=== PATIENT | female | born 1995 | race Two or more races ===

== ENCOUNTER 2016-12-28 00:14 | Emergency (ER) | payer BC ==
[~2016-12-28] VITALS: Ht 160 cm; Wt 77.1 kg
[2016-12-28 01:08] LABS: Basophils # (auto) 0.1 uL; Basophils % (auto) 0.6 % (0.0-2.0); DEFINITIVE VIEW TRANSMISSION; Eosinophils # (auto) 1.2 uL; Eosinophils % (auto) 10.3 % (0.0-7.0); Hematocrit 39.4 % (36.0-46.0); Hemoglobin 13.1 g/dL (12.2-16.2); Lymphocytes # (auto) 3.6 uL; Lymphocytes % (auto) 31.7 % (10.0-50.0); Mean Corpuscular Hemoglobin 27.2 pg (28.0-32.0); Mean Corpuscular Hgb Conc. 33.2 g/dL (32.0-36.0); Mean Platelet Volume 10.8 fL (7.4-10.4); Monocytes # (auto) 0.9 uL; Monocytes % (auto) 7.5 % (0.0-12.0); Neutrophils # (auto) 5.6 uL; Neutrophils % (auto) 49.9 % (37.0-80.0); Platelet Count (auto) 185 10^3/uL (140-450); Red Cell Distribution Width 12.5 % (11.6-16.0); White Blood Cell 11.4 10^3/uL (4.4-10.8)
[2016-12-28 01:28] LABS: Albumin 3.4 g/dL (3.4-5.0); BUN/Creatinine Ratio 33.3; Calcium 8.4 mg/dL (8.5-10.1); Magnesium 1.9 mg/dL (1.6-2.6); Potassium 3.6 mmol/L (3.5-5.1)
[2016-12-28 01:31] LABS: Bilirubin, Total 0.1 mg/dL (0.2-1.0); Total Protein 7.6 g/dL (6.4-8.2)
[2016-12-28 03:49] VITALS: BP 141/69
[2016-12-28] MEDS ORDERED: LIDOCAINE VISCOUS 2% 15ML UD PO ONE (04:15)
[2016-12-28] MEDS ORDERED: ALUM & MAG HYDROX-SIMETH LIQ(MAALOX) 30 ML PO ONE (04:15)
[2016-12-28] MEDS ORDERED: DONNATAL 5ml ORAL Elix (BELLADONNA ALK-PHENOBARB) PO ONE (04:15)
== END 2016-12-28 04:15 | disposition left against medical advice (07) ==
LOC: ER 00:18
DX: K21.9 Gastro-esophageal reflux disease without esophagitis (principal)
CPT/HCPCS: 36415; 80053; 83690; 83735; 84702; 85025

== ENCOUNTER → 2018-05-06 | Outpatient (CLI) | payer BC, MEDICAID ==
[2018-05-06 07:50] LABS: Basophils # (auto) 0.1 uL; Basophils % (auto) 0.5 % (0.0-2.0); Eosinophils # (auto) 0.1 uL; Hematocrit 36.1 % (36.0-46.0); Hemoglobin 11.6 g/dL (12.2-16.2); Lymphocytes # (auto) 2.9 uL; Lymphocytes % (auto) 24.9 % (10.0-50.0); Mean Corpuscular Hemoglobin 27.1 pg (28.0-32.0); Mean Corpuscular Hgb Conc. 32.2 g/dL (32.0-36.0); Mean Corpuscular Volume 84.2 fL (80.0-100.0); Monocytes # (auto) 0.7 uL; Monocytes % (auto) 6.4 % (0.0-12.0); Neutrophils # (auto) 7.8 uL; Neutrophils % (auto) 67.2 % (37.0-80.0); Nucleated Red Blood Cells % 0.2 %; Platelet Count (auto) 144 10^3/uL (140-450); Red Blood Cells 4.28 10^6/uL (4.0-5.20); Red Cell Distribution Width 13.3 % (11.8-14.3); White Blood Cell 11.6 10^3/uL (4.4-10.8)
== END | disposition home or self-care (01) ==
LOC: LAB 07:29
PROVIDERS: ATTEND Obstetrics & Gynecology
DX: O99.810 Abnormal glucose complicating pregnancy (principal); O23.43 Unspecified infection of urinary tract in pregnancy, third trimester; Z3A.28 28 weeks gestation of pregnancy
CPT/HCPCS: 36415; 82951; 83036; 85025; 87086

== ENCOUNTER 2018-05-29 14:08 | Observation (INO) | payer BC, MEDICAID | END 2018-05-29 15:55 | disposition home or self-care (01) | DRG 833 | LOC: LDRP 14:08 | PROVIDERS: ADMIT Obstetrics & Gynecology; ATTEND Obstetrics & Gynecology | DX: O28.1 Abnormal biochemical finding on antenatal screening of mother (principal); R77.2 Abnormality of alphafetoprotein; Z3A.32 32 weeks gestation of pregnancy | CPT/HCPCS: 59025; 76818; 81002; G0378 ==

== ENCOUNTER → 2018-07-01 | Outpatient (CLI) | payer BC, MEDICAID ==
[2018-07-01 15:20] LABS: Basophils # (auto) 0 uL; Basophils % (auto) 0.2 % (0.0-2.0); Eosinophils # (auto) 0 uL; Eosinophils % (auto) 0.5 % (0.0-7.0); Hematocrit 33.4 % (36.0-46.0); Hemoglobin 11.3 g/dL (12.2-16.2); Mean Corpuscular Hemoglobin 27.7 pg (28.0-32.0); Mean Corpuscular Hgb Conc. 33.9 g/dL (32.0-36.0); Mean Corpuscular Volume 81.7 fL (80.0-100.0); Monocytes # (auto) 0.4 uL; Monocytes % (auto) 4.3 % (0.0-12.0); Neutrophils # (auto) 7.5 uL; Nucleated Red Blood Cells % 0.1 %; Platelet Count (auto) 128 10^3/uL (140-450); Red Blood Cells 4.09 10^6/uL (4.0-5.20); Red Cell Distribution Width 14.1 % (11.8-14.3)
[2018-07-02 05:10] LABS: RPR Non Reactive (Non Reactive)
== END | disposition home or self-care (01) ==
LOC: LAB 14:38
PROVIDERS: ATTEND Obstetrics & Gynecology
DX: Z34.83 Encounter for supervision of other normal pregnancy, third trimester (principal); Z3A.36 36 weeks gestation of pregnancy
CPT/HCPCS: 36415; 85025; 86592

== ENCOUNTER 2018-07-16 07:50 | Inpatient (IN) | payer BC, MEDICAID ==
[~2018-07-16] VITALS: Ht 160 cm; Wt 107.5 kg
[2018-07-16] VITALS (13 sets, daily range): BP systolic 107–144; BP diastolic 58–89
[2018-07-16 08:55] LABS: Urine Blood Negative /uL (Negative)
[2018-07-16 08:56] LABS: Urine Bacteria FEW /hpf (None Seen); Urine Mucus FEW (None Seen); Urine WBC 3 /hpf (0 - 5)
[2018-07-16 09:01] LABS: Basophils # (auto) 0.1 uL; Basophils % (auto) 0.9 % (0.0-2.0); Eosinophils # (auto) 0.1 uL; Eosinophils % (auto) 0.9 % (0.0-7.0); Hematocrit 36.1 % (36.0-46.0); Hemoglobin 11.8 g/dL (12.2-16.2); Lymphocytes % (auto) 20.7 % (10.0-50.0); Mean Corpuscular Hemoglobin 27.1 pg (28.0-32.0); Mean Corpuscular Hgb Conc. 32.6 g/dL (32.0-36.0); Monocytes # (auto) 0.5 uL; Neutrophils # (auto) 7.1 uL; Neutrophils % (auto) 72.5 % (37.0-80.0); Nucleated Red Blood Cells % 0.1 %; Platelet Count (auto) 118 10^3/uL (140-450); Red Blood Cells 4.35 10^6/uL (4.0-5.20); Red Cell Distribution Width 14.3 % (11.8-14.3); White Blood Cell 9.8 10^3/uL (4.4-10.8)
[2018-07-16 09:05] LABS: INR 0.87 (0.9-1.15); Partial Thromboplastin Time 24.5 sec (23.78-33.04); Prothrombin Time 9.4 sec (9.27-12.13)
[2018-07-16 09:10] LABS: Albumin 2.6 g/dL (3.4-5.0); Calcium 8.3 mg/dL (8.5-10.1); Potassium 3.9 mmol/L (3.5-5.1)
[2018-07-16 09:12] LABS: Bilirubin, Total 0.2 mg/dL (0.2-1.0); Total Protein 6.7 g/dL (6.4-8.2)
[2018-07-16] MEDS ORDERED: SUCCINYLCHOLINE CHLORIDE 20 MG/ML 10ML VIAL IV ONE (11:54)
[2018-07-16] MEDS ORDERED: OXYTOCIN 10 UNIT/ML 10ML VIAL ONE (11:58)
[2018-07-16] MEDS ORDERED: fentaNYL CITRATE 100 MCG/2 ML VL ONE (11:58)
[2018-07-16] MEDS ORDERED: MORPHINE SULF(PF) 0.5MG/ML 10ML VIAL ONE (11:58)
[2018-07-16] MEDS: LACT. RINGERS/OXYTOCIN 20UNITS 1,000 ML IV SCH ×2 (12:02→18:42)
[2018-07-16] MEDS ORDERED: ceFAZolin 1GM/50ML 50 ML IV SCH (12:15)
[2018-07-16] MEDS ORDERED: ONDANSETRON HCL 4 MG/2 ML VIAL IV PRN ×2 (12:15→13:30)
[2018-07-16] MEDS ORDERED: MORPHINE SULFATE 4 MG/ML SYR/VIAL IV PRN (12:15)
[2018-07-16] MEDS ORDERED: CLINDAMYCIN 900MG IV 50 ML IV ONE (12:33)
[2018-07-16] MEDS ORDERED: NALOXONE HCL 0.4 MG/ML VIAL IV PRN (13:30)
[2018-07-16] MEDS ORDERED: diphenhdrAMINE HCL 50 MG/1 ML VL IV PRN (13:30)
[2018-07-16] MEDS ORDERED: CLINDAMYCIN 900MG IV 50 ML IV SCH (14:00)
[2018-07-16] MEDS: KETOROLAC TROMETH 30 MG/ML 1ML VIAL IV PRN (15:18)
[2018-07-16] MEDS: LACTATED RINGER'S 1,000 ML IV SCH ×2 (16:03→18:58)
[2018-07-16 21:13] LABS: Basophils # (auto) 0 uL; Basophils % (auto) 0.1 % (0.0-2.0); Eosinophils # (auto) 0 uL; Eosinophils % (auto) 0.2 % (0.0-7.0); Hematocrit 33.1 % (36.0-46.0); Lymphocytes # (auto) 1.4 uL; Lymphocytes % (auto) 10.3 % (10.0-50.0); Mean Corpuscular Hemoglobin 27.2 pg (28.0-32.0); Mean Corpuscular Hgb Conc. 33.2 g/dL (32.0-36.0); Mean Corpuscular Volume 82.1 fL (80.0-100.0); Monocytes # (auto) 0.6 uL; Monocytes % (auto) 4.7 % (0.0-12.0); Neutrophils # (auto) 11.1 uL; Neutrophils % (auto) 84.7 % (37.0-80.0); Platelet Count (auto) 109 10^3/uL (140-450); Red Blood Cells 4.03 10^6/uL (4.0-5.20); Red Cell Distribution Width 14.5 % (11.8-14.3); White Blood Cell 13.1 10^3/uL (4.4-10.8)
[2018-07-16] MEDS: CLINDAMYCIN 900MG IV 50 ML IV SCH (21:28)
[2018-07-17] VITALS (11 sets, daily range): BP systolic 99–147; BP diastolic 46–73
[2018-07-17] MEDS: LACTATED RINGER'S 1,000 ML IV SCH ×2 (02:58→08:03)
[2018-07-17] MEDS: KETOROLAC TROMETH 30 MG/ML 1ML VIAL IV PRN (02:59)
[2018-07-17] MEDS: CLINDAMYCIN 900MG IV 50 ML IV SCH ×2 (04:58→15:06)
[2018-07-17 05:06] LABS: RPR Non Reactive (Non Reactive)
[2018-07-17] MEDS ORDERED: PHISODERM TOP SOLN 240ML BTL TOP ONE (05:10)
[2018-07-17 06:45] LABS: Basophils # (auto) 0.1 uL; Basophils % (auto) 0.5 % (0.0-2.0); Eosinophils # (auto) 0.1 uL; Eosinophils % (auto) 0.9 % (0.0-7.0); Hematocrit 32.5 % (36.0-46.0); Hemoglobin 10.9 g/dL (12.2-16.2); Lymphocytes % (auto) 18.9 % (10.0-50.0); Mean Corpuscular Hemoglobin 27.7 pg (28.0-32.0); Mean Corpuscular Hgb Conc. 33.5 g/dL (32.0-36.0); Mean Corpuscular Volume 82.8 fL (80.0-100.0); Monocytes # (auto) 0.6 uL; Monocytes % (auto) 5.4 % (0.0-12.0); Neutrophils % (auto) 74.3 % (37.0-80.0); Nucleated Red Blood Cells % 0.1 %; Platelet Count (auto) 114 10^3/uL (140-450); Red Blood Cells 3.92 10^6/uL (4.0-5.20); Red Cell Distribution Width 14.4 % (11.8-14.3); White Blood Cell 10.7 10^3/uL (4.4-10.8)
[2018-07-17] MEDS ORDERED: BISACODYL 10 MG RECT SUPP PR PRN (08:15)
[2018-07-17] MEDS ORDERED: LACTATED RINGER'S 1,000 ML IV SCH (08:15)
[2018-07-17] MEDS: DOCUSATE CALCIUM 240 MG CAP PO SCH (08:49)
[2018-07-17] MEDS: HYDROcodone-ACET 5/325MG TAB PO PRN ×4 (08:49→23:08)
[2018-07-17] MEDS: DOCUSATE SOD 100 MG CAP PO SCH ×2 (08:49→21:54)
[2018-07-17] MEDS: LACT. RINGERS/OXYTOCIN 20UNITS 1,000 ML IV SCH (08:51)
[2018-07-17] MEDS: IBUPROFEN 800 MG TAB PO PRN ×2 (11:57→20:20)
[2018-07-17] MEDS: SIMETHICONE 80 MG CHEWABLE TABLET PO SCH ×3 (11:57→21:54)
[2018-07-18] MEDS: HYDROcodone-ACET 5/325MG TAB PO PRN ×4 (03:10→21:36)
[2018-07-18 03:14] VITALS: BP 99/45
[2018-07-18] MEDS: IBUPROFEN 800 MG TAB PO PRN ×3 (05:39→23:45)
[2018-07-18] MEDS: SIMETHICONE 80 MG CHEWABLE TABLET PO SCH ×4 (05:39→21:36)
[2018-07-18 06:30] VITALS: BP 106/41
[2018-07-18] MEDS: DOCUSATE CALCIUM 240 MG CAP PO SCH (09:42)
[2018-07-18] MEDS: DOCUSATE SOD 100 MG CAP PO SCH ×2 (09:43→21:36)
[2018-07-18 11:08] VITALS: BP 117/69
[2018-07-18 15:00] VITALS: BP 115/63
[2018-07-18 18:55] VITALS: BP 109/63
[2018-07-18 23:00] VITALS: BP 102/32
[2018-07-19 03:00] VITALS: BP 113/71
[2018-07-19] MEDS ORDERED: MEASLES, MUMPS & RUBELLA VAC(MMRII) 0.5ML SC ONE (06:00)
[2018-07-19] MEDS: SIMETHICONE 80 MG CHEWABLE TABLET PO SCH (06:18)
[2018-07-19] MEDS: HYDROcodone-ACET 5/325MG TAB PO PRN (06:33)
[2018-07-19 06:45] VITALS: BP 103/62
[2018-07-19] MEDS: DOCUSATE SOD 100 MG CAP PO SCH (09:52)
[2018-07-19] MEDS: DOCUSATE CALCIUM 240 MG CAP PO SCH (09:52)
== END 2018-07-19 10:50 | disposition home or self-care (01) | DRG 788 ==
LOC: LDRP 07:50
PROVIDERS: ADMIT Specialist; ATTEND Specialist
PROC: 10D00Z1 Extraction of Products of Conception, Low, Open Approach (ICD-10-PCS; principal; 2018-07-16 12:05)
DX: O34.211 Maternal care for low transverse scar from previous cesarean delivery (principal); Z37.0 Single live birth; Z3A.39 39 weeks gestation of pregnancy
CPT/HCPCS: 36415; 51702; 59025; 80053; 81001; 81002; 85025; 85610; 85730; 86592; 86850; 86900; 86901; 90471; 96361; 96366; G0378; J0330; J1885; J2405; J2590; J3490

== ENCOUNTER → 2018-12-19 | Emergency (ER) | payer BC, MEDICAID | END | disposition left against medical advice (07) | LOC: ER 21:11 | DX: M54.9 Dorsalgia, unspecified (principal); Z53.21 Procedure and treatment not carried out due to patient leaving prior to being seen by health care provider ==

== ENCOUNTER 2018-12-20 22:07 | Emergency (ER) | payer BC, MEDICAID ==
[~2018-12-20] VITALS: Ht 162.6 cm; Wt 97.5 kg
[2018-12-20 23:28] LABS: Urine Bacteria FEW /hpf (None Seen); Urine Blood TRACE /uL (Negative); Urine Specific Gravity 1.026 (1.001-1.035); Urine WBC 1 /hpf (0 - 5)
[2018-12-21 00:46] VITALS: BP 139/79
[2018-12-21] MEDS ORDERED: methylPREDNISolone SOD SUCC 125 MG/2 ML VL IM ONE (01:00)
[2018-12-21] MEDS ORDERED: KETOROLAC TROMETH 60MG/2ML VIAL IM ONE (01:00)
[2018-12-21] MEDS ORDERED: methylPREDNISolone SOD SUCC 125 MG/2 ML VL ONE (01:05)
== END 2018-12-21 01:59 | disposition home or self-care (01) ==
LOC: ER 22:08
DX: S42.292A Other displaced fracture of upper end of left humerus, initial encounter for closed fracture (principal); S13.9XXA Sprain of joints and ligaments of unspecified parts of neck, initial encounter; S23.9XXA Sprain of unspecified parts of thorax, initial encounter; Y08.89XA Assault by other specified means, initial encounter; Y93.89 Activity, other specified; Y99.8 Other external cause status; Y92.89 Other specified places as the place of occurrence of the external cause
CPT/HCPCS: 72125; 72128; 73030; 81001; 81025; 96372; 99284; J1885; J2930; 29105

== ENCOUNTER 2021-05-31 13:01 | Emergency (ER) | payer BC, MEDICAID, OTHER ==
[~2021-05-31] VITALS: Ht 160 cm; Wt 101.2 kg
[2021-05-31 14:15] VITALS: BP 132/84
== END 2021-05-31 14:59 | disposition home or self-care (01) ==
LOC: ER 13:01
DX: S46.812A Strain of other muscles, fascia and tendons at shoulder and upper arm level, left arm, initial encounter (principal); R51.9 Headache, unspecified; F41.9 Anxiety disorder, unspecified; V49.49XA Driver injured in collision with other motor vehicles in traffic accident, initial encounter; Y93.89 Activity, other specified; Y92.488 Other paved roadways as the place of occurrence of the external cause; Y99.8 Other external cause status
CPT/HCPCS: 70450; 73000

== ENCOUNTER 2024-01-07 10:39 | Emergency (ER) | payer BC, MEDICAID ==
[~2024-01-07] VITALS: Ht 162.6 cm; Wt 98.4 kg
[2024-01-07 13:05] LABS: Basophils # (auto) 0.1 10 ^3/uL (0-0.2); Basophils % (auto) 1.5 % (0.0-2.0); Eosinophils # (auto) 0.3 10 ^3/uL (0-0.8); Eosinophils % (auto) 3.7 % (0.0-7.0); Hemoglobin 13.5 g/dL (12.2-16.2); Lymphocytes # (auto) 2.7 10 ^3/uL (0.4-5.4); Lymphocytes % (auto) 29.5 % (10.0-50.0); Mean Corpuscular Hemoglobin 27.5 pg (28.0-32.0); Mean Corpuscular Volume 83.4 fL (80.0-100.0); Monocytes # (auto) 0.5 10 ^3/uL (0-1.3); Monocytes % (auto) 5.6 % (0.0-12.0); Neutrophils # (auto) 5.5 10 ^3/uL (1.6-8.6); Neutrophils % (auto) 59.7 % (37.0-80.0); Nucleated Red Blood Cells % 0.1 %; Red Blood Cells 4.92 10^6/uL (4.0-5.20); Red Cell Distribution Width 14.6 % (11.8-14.3); White Blood Cell 9.3 10^3/uL (4.4-10.8)
[2024-01-07 13:25] LABS: Alanine Aminotransferase 28 U/L (7-40); Albumin 4.3 g/dL (3.2-4.8); Alkaline Phosphatase 58 U/L (46-116); Anion Gap 7 (5-15); Aspartate Aminotransferase 22 U/L (13-40); BUN/Creatinine Ratio 19.1 (10.0-20.0); Bilirubin, Total 0.4 mg/dL (0.2-1.0); Blood Urea Nitrogen 13 mg/dL (9-23); Calcium 9.9 mg/dL (8.5-10.1); Carbon Dioxide 27 mmol/L (20-30); Chloride 104 mmol/L (98-107); Glucose 96 mg/dL (74-106); Potassium 3.9 mmol/L (3.5-5.1); Sodium 138 mmol/L (136-145)
[2024-01-07 13:41] LABS: Lipase 52 U/L (12-53)
[2024-01-07] MEDS: ACETAMINOPHEN 500 MG TAB PO ONE (14:15)
[2024-01-07 16:33] LABS: Urine Bacteria MANY /hpf (None Seen); Urine Blood Negative /uL (Negative); Urine Clarity Clear (Clear); Urine Color Colorless (Yellow); Urine Protein, UAD Negative (Negative); Urine Specific Gravity 1.005 (1.001-1.035); Urine Urobilinogen Normal (Negative); Urine WBC <1 /hpf (0 - 5); Urine pH 6.5 (5.0-9.0)
[2024-01-07 16:51] LABS: Amphetamine Screen, Urine Neg (NEGATIVE)
[2024-01-07 16:52] LABS: Barbiturate Scree,Urine Neg (NEGATIVE); Benzodiazephine Screen, Urine Neg (NEGATIVE); Cannabinoid Screen, Urine Neg (NEGATIVE); Cocaine Screen, Urine Neg (NEGATIVE); Opiate Scree,Urine Neg (NEGATIVE); Phencyclidine Screen, Urine Neg (NEGATIVE)
[2024-01-07] MEDS ORDERED: ACET500T58 PO (19:27)
[2024-01-07 19:48] VITALS: BP 136/74; PULSE 95; RESP 95; TEMP 98.2; O2SAT 97
== END 2024-01-07 19:47 | disposition home or self-care (01) ==
LOC: ER 10:39
DX: N94.0 Mittelschmerz (principal)
CPT/HCPCS: 36415; 74176; 76830; 76856; 80053; 80307; 81001; 81025; 83690; 85025